=== PATIENT | female | born 1950 | race Caucasian/White ===

== ENCOUNTER 2016-08-19 18:52 | Emergency (ER) | payer OTHER ==
[~2016-08-19] VITALS: Ht 160 cm; Wt 78.0 kg
[2016-08-19 20:08] LABS: HEMATOCRIT 38.1 % (36.0-46.0); MCH 29.2 PG (29.0-34.0); MCHC 33.1 G/DL (30.0-36.0); MCV 88.4 FL (83-99); MEAN PLAT.VOLUME 9.6 uM^3 (9.5-12.4); PLATELET COUNT 376 K/uL (156-360); RBC DIS.WIDTH-SD 42.5 % (39-53); RED BLOOD COUNT 4.31 M/uL (3.80-5.20); WHITE BLOOD COUNT 10.4 K/uL (4.1-10.2)
[2016-08-19 20:23] LABS: CHLORIDE 104 mEq/L (99-109); POTASSIUM 5.2 mEq/L (3.7-5.4); SODIUM 141 mEq/L (136-147)
[2016-08-19 20:25] LABS: GLUCOSE 95 mg/dL (70-99)
[2016-08-19 20:26] LABS: ANION GAP 10 MEQ/L (2-14)
[2016-08-19 20:27] LABS: TOTAL BILIRUBIN 0.2 mg/dL (0.0-1.0)
[2016-08-19 20:28] LABS: ALKALINE PHOSPHATASE 78 IU/L (3-129)
[2016-08-19 20:29] LABS: GFR ESTIMATE (CALCULATED) 43 mL/min/
[2016-08-19 20:30] LABS: UREA NITROGEN (BUN) 25 mg/dL (9-23)
[2016-08-19 20:48] LABS: ADD MIUA? YES; BILIRUBIN NEGATIVE; BLOOD NEGATIVE; COLOR YELLOW ((YELLOW)); GLUCOSE (STRIP) NEGATIVE; KETONES NEGATIVE; LEUKOCYTES TRACE; NITRITE NEGATIVE; PROTEIN (STRIP) NEGATIVE; SPECIFIC GRAVITY 1.014 (1.000-1.030); UROBILINOGEN 0.2 MG/DL (0.2-1.0)
[2016-08-19 21:03] LABS: BACTERIA RARE /HPF; EPITHELIAL CELLS RARE /HPF; MUCUS TRACE /LPF; RED BLOOD CELLS 0-5 /HPF (0-5); UCUL ADDED? NO; WHITE BLOOD CELLS 0-5 /HPF (0-5)
[2016-08-20] MEDS ORDERED: FLAGYL500 MG PO (00:54)
[2016-08-20] MEDS ORDERED: CIPRO500 MG PO (00:54)
[2016-08-20 00:58] VITALS: BP 128/70
== END 2016-08-20 01:06 | disposition home or self-care (01) ==
LOC: EME 18:52
DX: K57.92 Diverticulitis of intestine, part unspecified, without perforation or abscess without bleeding (principal); Z87.891 Personal history of nicotine dependence; I10 Essential (primary) hypertension
CPT/HCPCS: 74176; 80053; 81003; 85027; 99281; 99285